=== PATIENT | female | born 1980 | race Caucasian/White ===

== ENCOUNTER → 2016-07-04 | Outpatient (CLI) | payer OTHER ==
[~2016-07-04] VITALS: Ht 160 cm; Wt 98.0 kg
[~2016-07-04] MED LIST: ADV100INH INH; ALL10TAB27 PO; NS 1,000 ML IV ONE; OMEP40CA2 PO; RANI150T PO; SING10TA32 PO; TYLE500T78 PO; ZOLO100T PO
--- NOTE | 2016-07-04 15:57 | ROOR ---
Patient Name: Cecy Beck Procedure Date: 07/04/2016 3:40 PM Date of : 1980 Age: 35 Room: [facility] Gender: Female Note Status: Finalized Procedure: Upper GI endoscopy Indications: Functional Dyspepsia, Heartburn Providers: Jaime HARRISON MD Referring MD: WILIAM ROMERO DO Requesting Provider: Medicines: Monitored Anesthesia Care Complications: No immediate complications. Procedure: Pre-Anesthesia Assessment: - The heart rate, respiratory rate, oxygen saturations, blood pressure, adequacy of pulmonary ventilation, and response to care were monitored throughout the procedure. The Endoscope was introduced through the mouth, and advanced to the second part of duodenum. The upper GI endoscopy was accomplished without difficulty. The patient tolerated the procedure well. Findings: Small Hiatal Hernia. The esophagus was normal. The stomach was normal. The examined duodenum was normal. Impression: - Small Hiatal Hernia. - Normal esophagus. - Normal stomach. - Normal examined duodenum. - No specimens collected. Recommendation: - Follow an antireflux regimen. - Continue present medications. Jaime Harrison MD Jaime HARRISON MD 07/04/2016 3:56:28 PM This report has been signed electronically. Number of Addenda: 0 Note Initiated On: 07/04/2016 3:40 PM Estimated Blood Loss: Estimated blood loss: none.
[2016-07-04 16:37] VITALS: BP 129/80
== END | disposition home or self-care (01) ==
LOC: M OPP 14:14
PROVIDERS: ATTEND Internal Medicine Gastroenterology
DX: K30 Functional dyspepsia (principal); R12 Heartburn; K44.9 Diaphragmatic hernia without obstruction or gangrene; B18.2 Chronic viral hepatitis C; M79.7 Fibromyalgia; J45.909 Unspecified asthma, uncomplicated; G47.30 Sleep apnea, unspecified; R06.83 Snoring; Z80.3 Family history of malignant neoplasm of breast; Z88.8 Allergy status to other drugs, medicaments and biological substances; Z79.899 Other long term (current) drug therapy

== ENCOUNTER 2017-12-08 09:27 | Day surgery (SDC) | payer OTHER ==
[2017-12-08] MEDS: LR 1,000 ML IV (09:58)
[2017-12-08 10:08] LABS: CONTROL LINE UCG INT CTR LINE PRESENT; URINE PREG TEST NEGATIVE (NEGATIVE)
[2017-12-08] MEDS ORDERED: ONDANSETRON 4MG/2ML VIAL (J2405) As Ordered ×2 (11:57→12:37)
[2017-12-08] MEDS ORDERED: dexameTHASONE 4 MG/ML 1ML VIAL (J1100) As Ordered (11:57)
[2017-12-08] MEDS ORDERED: fentaNYL 100 MCG/2 ML INJECTION (J3010) As Ordered (11:57)
[2017-12-08] MEDS ORDERED: MIDAZOLAM INJ 2 MG/2 ML VIAL (J2250) As Ordered (11:57)
[2017-12-08] MEDS ORDERED: PROPOFOL 200 MG/20 ML VIAL As Ordered (11:57)
[2017-12-08] MEDS ORDERED: ROCURONIUM BROMIDE 50 MG/5 ML VIAL As Ordered (11:57)
[2017-12-08] MEDS ORDERED: LIDOCAINE 2% INJ 100 MG/5 ML SDV (FOR ANES.) As Ordered (11:57)
[2017-12-08] MEDS ORDERED: GLYCOPYRROLATE INJ 0.2 MG/ML 2 ML VIAL As Ordered (12:00)
[2017-12-08] MEDS ORDERED: NEOSTIGMINE 10 MG/10 ML VIAL (J2710) As Ordered (12:00)
[2017-12-08] MEDS: BUPIVACAINE/EPIN 0.25% 30 ML VIAL As Ordered (12:11)
[2017-12-08] MEDS ORDERED: LR 1,000 ML IV (12:45)
[2017-12-08] MEDS ORDERED: fentaNYL 100 MCG/2 ML INJECTION (J3010) IV (12:45)
[2017-12-08] MEDS: NORCO, ANEXSIA 5/325MG TABLET (HYDROcodone/ACETAMINOPHEN) PO (12:50)
== END 2017-12-08 14:25 | disposition home or self-care (01) ==
LOC: M SDC 09:27
DX: K80.10 Calculus of gallbladder with chronic cholecystitis without obstruction (principal); F41.9 Anxiety disorder, unspecified; F32.9 Major depressive disorder, single episode, unspecified; J45.909 Unspecified asthma, uncomplicated; J30.9 Allergic rhinitis, unspecified; K21.9 Gastro-esophageal reflux disease without esophagitis; M06.9 Rheumatoid arthritis, unspecified; M79.7 Fibromyalgia; G47.33 Obstructive sleep apnea (adult) (pediatric); Z88.6 Allergy status to analgesic agent; Z79.899 Other long term (current) drug therapy
CPT/HCPCS: 47562

== ENCOUNTER 2019-04-04 14:13 | Day surgery (SDC) | payer OTHER ==
[~2019-04-04] VITALS: Ht 160 cm; Wt 100.2 kg
[~2019-04-04 14:13] MED LIST changes: -ALL10TAB27 PO; +ALL10TAB29 PO; +BIOT1TAB PO; +CYCL10TA PO; +CYMB60CA3 PO; +FISH1000 PO; +LR 1,000 ML IV ONE; -NS 1,000 ML IV ONE; -OMEP40CA2 PO; +OMEP40CA97 PO; +PANT40TA3 PO; +REST0.05 OP
[2019-04-04] MEDS ORDERED: fentaNYL 100 MCG/2 ML INJECTION (J3010) As Ordered ONE (14:30)
[2019-04-04] MEDS ORDERED: MIDAZOLAM INJ 2 MG/2 ML VIAL (J2250) As Ordered ONE (14:30)
[2019-04-04] MEDS ORDERED: ONDANSETRON 4MG/2ML VIAL (J2405) As Ordered ONE (14:31)
[2019-04-04] MEDS ORDERED: dexameTHASONE 4 MG/ML 1ML VIAL (J1100) As Ordered ONE (14:31)
[2019-04-04] MEDS ORDERED: LIDOCAINE 2% INJ 100 MG/5 ML SDV (FOR ANES.) As Ordered ONE (14:31)
[2019-04-04] MEDS ORDERED: propofoL 200 MG/20 ML VIAL As Ordered ONE (14:31)
[2019-04-04] MEDS ORDERED: ACETAMINOPHEN 1000MG 100ML IV BTL (OFIRMEV) (J0131 PER 10MG) As Ordered ONE (16:02)
[2019-04-04] MEDS ORDERED: fentaNYL 100 MCG/2 ML INJECTION (J3010) IV PRN (16:45)
[2019-04-04] MEDS ORDERED: ONDANSETRON 4MG/2ML VIAL (J2405) IV PRN (16:45)
[2019-04-04] MEDS ORDERED: LR 1,000 ML IV SCH ×2 (16:45)
[2019-04-04] MEDS ORDERED: PERCOCET 5MG/325MG TAB PO PRN (16:45)
[2019-04-04 18:15] VITALS: BP 144/90
--- NOTE | 2019-04-04 18:28 | RO ---
DATE OF PROCEDURE: 04/04/2019 PREOPERATIVE DIAGNOSIS INDICATION FOR SURGERY: Complex atypical hyperplasia by office sampling. POSTOPERATIVE DIAGNOSIS: Complex atypical hyperplasia by office sampling. PROCEDURE: Dilatation and curettage and hysteroscopy with MyoSure endometrial resection. SURGEON: Dr. Subramanian OPERATING SYSTEMS PROGRAMMER: None. ANESTHESIA: Laryngeal mask anesthesia. BRIEF DESCRIPTION OF PROCEDURE AND FINDINGS: Cecy was brought to the operating room where sufficient LMA anesthesia was induced. She was prepped, draped and positioned in the usual sterile fashion. The cervix was dilated and then the endometrial cavity was visualized. There was polypoid overgrowth and it was difficult to tell whether this was released by the dilation because there were furrows in the universal overgrown endometrium but there was also some polypoid areas of overgrowth as well. There was no hypervascularity. Some of the early pictures did not save unfortunately and then we had used the MyoSure to resect some of that before we actually got the camera to work. The rest of the procedure was documented and you can see the overgrowth and this sort of broad based polypoid overgrowth that was visualized. We went ahead and took the MyoSure reach and just resected the entire endometrium to make sure we had really taken out all of that overgrowth that could be visualized and sent all of it for pathologic evaluation. After we had resected the endometrium essentially entire at least by visual appearance we went ahead and curettaged as well just to confirm and of course we had normal uterine cry throughout and all of the path went together for evaluation and the procedure was ended. ESTIMATED BLOOD LOSS FOR THE PROCEDURE: About 5 mL. FLUID REPLACEMENT: Crystalloid. SPECIMEN: Endometrium. COMPLICATIONS: None. CONDITION AND DISPOSITION: Cecy tolerated the procedure well and was recovering in the recovery room in good condition.
== END 2019-04-04 18:30 | disposition home or self-care (01) ==
LOC: M SDC 14:13
PROVIDERS: ATTEND Obstetrics & Gynecology
DX: N85.02 Endometrial intraepithelial neoplasia [EIN] (principal); R10.2 Pelvic and perineal pain; K21.9 Gastro-esophageal reflux disease without esophagitis; M79.7 Fibromyalgia; G47.30 Sleep apnea, unspecified; F41.9 Anxiety disorder, unspecified; Z79.899 Other long term (current) drug therapy; Z88.8 Allergy status to other drugs, medicaments and biological substances
CPT/HCPCS: 58558; 81025; 88305; J0131; J1100; J2250; J2405; J3010

== ENCOUNTER 2019-05-02 10:45 | Day surgery (SDC) | payer OTHER ==
[~2019-05-02] VITALS: Ht 160 cm; Wt 99.2 kg
[~2019-05-02 10:45] MED LIST changes: -LR 1,000 ML IV ONE; +LR 1,000 ML IV SCH; +UNRESOLVED CLARIFICATION ENTRY XX SCH
[2019-05-02] MEDS ORDERED: MIDAZOLAM INJ 2 MG/2 ML VIAL (J2250) As Ordered ONE (11:41)
[2019-05-02] MEDS ORDERED: ONDANSETRON 4MG/2ML VIAL (J2405) As Ordered ONE ×2 (11:41→13:19)
[2019-05-02] MEDS ORDERED: propofoL 200 MG/20 ML VIAL As Ordered ONE (11:41)
[2019-05-02] MEDS ORDERED: dexameTHASONE 4 MG/ML 1ML VIAL (J1100) As Ordered ONE (11:41)
[2019-05-02] MEDS ORDERED: LIDOCAINE 2% INJ 100 MG/5 ML SDV (FOR ANES.) As Ordered ONE (11:41)
[2019-05-02] MEDS ORDERED: fentaNYL 100 MCG/2 ML INJECTION (J3010) As Ordered ONE (11:41)
[2019-05-02] MEDS ORDERED: ACETAMINOPHEN 1000MG 100ML IV BTL (OFIRMEV) (J0131 PER 10MG) As Ordered ONE (12:38)
[2019-05-02] MEDS ORDERED: PERCOCET 5MG/325MG TAB As Ordered ONE (13:19)
[2019-05-02] MEDS ORDERED: fentaNYL 100 MCG/2 ML INJECTION (J3010) IV PRN (13:30)
[2019-05-02] MEDS ORDERED: LR 1,000 ML IV SCH ×2 (13:30)
[2019-05-02] MEDS ORDERED: ONDANSETRON 4MG/2ML VIAL (J2405) IV PRN (13:30)
[2019-05-02] MEDS ORDERED: METOCLOPRAMIDE INJ 10MG/2ML VIAL (J2765) IV PRN (13:30)
[2019-05-02] MEDS: PERCOCET 5MG/325MG TAB PO PRN ×2 (13:32→14:08)
[2019-05-02] MEDS ORDERED: NORCO, ANEXSIA 5/325MG TABLET (HYDROcodone/ACETAMINOPHEN) PO PRN (13:45)
[2019-05-02 15:40] VITALS: BP 144/76
--- NOTE | 2019-05-03 23:12 | RO ---
DATE OF PROCEDURE: 05/02/2019 PREOPERATIVE DIAGNOSIS: Bleeding and pain. POSTOPERATIVE DIAGNOSIS: Bleeding and pain. PROCEDURE: Dilation and curettage (D and C), hysteroscopy, ablation. SURGEON: Dr. Tedoora Subramanian SUPERVISOR POULTRY PROCESSING: None. ANESTHESIA: LMA. DESCRIPTION OF PROCEDURE: Cecy was brought to the operating room where sufficient LMA anesthesia was induced, and she was prepped, draped and positioned in the usual sterile fashion. With the cervix carefully dilated, length of the endometrial cavity was measured at 4.5. We subsequently had a width of 4.5, but at this point, we only had length. We visualized the endometrial cavity with the hysteroscope, and there was a little bit of thick growth of endometrium but no abnormalities. This is consistent with the patient's history. We did do curettage to thin out that overgrowth, and, of course, that was sent for a double check, but had a secondary purpose of attempting to get that smooth endometrium as much as possible. Then, having done that and again confirmed normal endometrial cavity, we went ahead and placed the NovaSure device, and, again, length was set at 4.5, width was measured at 4.5, and then she had an uncomplicated NovaSure ablation carried out with the procedure then ended. Estimated blood loss for the procedure: Maybe 3 mL. Fluid replacement was crystalloid. Complications: None. Condition and Disposition: Cecy tolerated the procedure well and was recovering in the recovery room in good condition.
== END 2019-05-02 15:44 | disposition home or self-care (01) ==
LOC: M SDC 10:45
PROVIDERS: ATTEND Obstetrics & Gynecology
DX: N85.00 Endometrial hyperplasia, unspecified (principal); N93.9 Abnormal uterine and vaginal bleeding, unspecified; R10.2 Pelvic and perineal pain; G47.30 Sleep apnea, unspecified; K21.9 Gastro-esophageal reflux disease without esophagitis; M06.9 Rheumatoid arthritis, unspecified; M79.7 Fibromyalgia; J45.909 Unspecified asthma, uncomplicated; F41.9 Anxiety disorder, unspecified; Z88.6 Allergy status to analgesic agent; Z79.899 Other long term (current) drug therapy
CPT/HCPCS: 58563; 81025; 88305; J0131; J1100; J2250; J2405; J3010